=== PATIENT | female | born 1995 | race Caucasian/White ===

== ENCOUNTER → 2017-11-11 | Outpatient (CLI) | payer OTHER ==
[~2017-11-11] MED LIST: ACET325 PO; ASPI81CH PO; Aspir-Low81 MG PO; BC PATCH; CLIN300 PO; CYCL10 PO; ERYEST50SU PO; ERYT500 PO; HYDACE5 PO; Hydrocodone-Ap1 EA23 PO; IBUP600 PO; IBUP800 PO; Lopressor 25 mg25 MG PO; Norco 5-325 Ta1 EACH PO; PROM25 PO; SERT100 PO; SERT25 PO; Tylenol325 MG PO; WARF2.5 PO
== END | disposition home or self-care (01) ==
LOC: LAB 10:30
PROVIDERS: Family Medicine
DX: Z01.419 Encounter for gynecological examination (general) (routine) without abnormal findings (principal)
CPT/HCPCS: 87491; 87591; G0145